=== PATIENT | male | born 1990 | race Caucasian/White ===

== ENCOUNTER 2018-06-07 21:57 | Inpatient (IN) | payer MEDICAID ==
[~2018-06-07] VITALS: Ht 170.2 cm; Wt 81.8 kg
[2018-06-08] MEDS ORDERED: OLAN10TA3 PO (00:44)
[2018-06-08 00:57] LABS: BASOPHILS % (AUTO) 0.4 % (0.0-2.0); EOSINOPHILS % (AUTO) 2.7 % (1.0-6.0); HEMATOCRIT 44.8 % (41-53); HEMOGLOBIN 15.3 g/dL (13.5-17.5); LYMPHOCYTES # (AUTO) 2.4 K/uL (1.0-4.8); LYMPHOCYTES % (AUTO) 22.6 % (22.0-44.0); MEAN CORPUSCULAR HEMOGLOBIN 29.8 pg (26.0-34.0); MEAN CORPUSCULAR HGB CONC 34.1 G/dL (31.0-37.0); MEAN CORPUSCULAR VOLUME 87 fL (80-100); MONOCYTES # (AUTO) 1.1 K/uL (0.1-1.0); NEUTROPHILS # (AUTO) 6.8 K/uL (1.8-7.7); NEUTROPHILS % (AUTO) 64.3 % (40.0-70.0); PLATELET COUNT (AUTO) 257 K/uL (150-450); RED BLOOD CELL COUNT(AUTO) 5.14 MIL/uL (4.50-5.90); RED CELL DISTRIBUTION WIDTH 13.8 % (11.5-14.5)
[2018-06-08 01:04] LABS: ANION GAP 7 mmol/L (8-16); CALCIUM, TOTAL 9.2 mg/dL (8.8-10.5); CARBON DIOXIDE 28 mmol/L (22-29); CHLORIDE 101 mmol/L (98-107); CREATININE 1.06 mg/dL (0.60-1.30); GLOMERULAR FILTR. RATE CALC > 60 mL/min (>60); GLUCOSE,RANDOM 106 mg/dL (70-110); POTASSIUM 3.5 mmol/L (3.5-5.1); SODIUM SERUM 136 mmol/L (136-145); UREA NITROGEN, BLOOD 22 mg/dL (7-18)
[2018-06-08 01:10] LABS: ALANINE AMINOTRANSFERASE 29 U/L (12-78); ALBUMIN 3.3 g/dL (3.4-5.0); ALKALINE PHOSPHATASE 85 U/L (46-116); ASPARTATE AMINOTRANSFERASE 22 U/L (15-37); BILIRUBIN,TOTAL 0.5 mg/dL (0.1-1.0); TOTAL PROTEIN, SERUM 7.3 g/dL (6.4-8.2)
[2018-06-08 01:13] LABS: ACETAMINOPHEN < 2 mcg/mL (10-30)
[2018-06-08 01:29] LABS: SALICYLATE < 2.8 mg/dL (2.8-20.0)
[2018-06-08 04:07] LABS: AMPHET/METH SCREEN,URINE POSITIVE (NEGATIVE); BARBITURATE SCREEN, URINE NEGATIVE (NEGATIVE); BENZODIAZEPINES SCREEN,URINE NEGATIVE (NEGATIVE); CANNABINOID SCREEN,URINE POSITIVE (NEGATIVE); COCAINE SCREEN,URINE NEGATIVE (NEGATIVE); METHADONE SCREEN, URINE NEGATIVE (NEGATIVE); OPIATE SCREEN,URINE POSITIVE (NEGATIVE); PHENCYCLIDINE SCREEN,URINE NEGATIVE (NEGATIVE)
[2018-06-08] MEDS ORDERED: HALOPERIDOL 5 MG TABLET PO PRN (05:00)
[2018-06-08] MEDS ORDERED: ZOLPIDEM TARTRATE 10 MG TABLET PO PRN (05:00)
[2018-06-08] MEDS ORDERED: LORazepam 1 MG TABLET PO PRN (05:00)
[2018-06-08 05:31] LABS: APPEARANCE,URINE CLEAR (CLEAR); BILIRUBIN,URINE NEGATIVE (NEGATIVE); GLUCOSE, URINE (UA) NEGATIVE (NEGATIVE); KETONES,URINE NEGATIVE (NEGATIVE); LEUKOCYTE ESTERASE ,URINE NEGATIVE (NEGATIVE); NITRATE,URINE NEGATIVE (NEGATIVE); OCCULT BLOOD,URINE NEGATIVE (NEGATIVE); PROTEIN,URINE NEGATIVE (NEGATIVE); UROBILINOGEN,URINE 0.2 mg/dL (<=1.0)
[2018-06-08 05:36] VITALS: BP 121/62
[2018-06-08 07:25] VITALS: BP 110/61
[2018-06-08 09:46] VITALS: BP 107/61
[2018-06-08] MEDS ORDERED: SODIUM CHLORIDE 0.9% 1,000 ML IV ONE (09:59)
[2018-06-08] MEDS ORDERED: BISACODYL 5 MG EC TABLET PO PRN (14:15)
[2018-06-08 17:09] VITALS: BP 104/61
[2018-06-08] MEDS: OLANZapine 10 MG TABLET PO SCH (21:44)
[2018-06-09 06:31] LABS: CHOL/HDL RATIO 1.9 (4.2-7.3)
[2018-06-09 10:43] VITALS: BP 118/75
[2018-06-09 11:19] LABS: GLUCOMETER DEV NAME(LOC) 3E.I; GLUCOSE,POINT OF CARE 91 MG/DL (70-110)
[2018-06-09] MEDS ORDERED: ACETAMINOPHEN 325 MG TABLET PO PRN (11:30)
[2018-06-09] MEDS: IBUPROFEN 600 MG TABLET PO PRN (11:48)
[2018-06-09 17:20] VITALS: BP 105/61
[2018-06-09] MEDS: OLANZapine 10 MG TABLET PO SCH (21:22)
[2018-06-10 07:06] VITALS: BP 116/77
[2018-06-10 08:03] VITALS: BP 118/74
[2018-06-10 16:54] VITALS: BP 124/67
[2018-06-10] MEDS: OLANZapine 10 MG TABLET PO SCH (21:03)
[2018-06-11 05:21] VITALS: BP 125/75
[2018-06-11 09:30] VITALS: BP 131/73
[2018-06-11] MEDS: IBUPROFEN 600 MG TABLET PO PRN (09:57)
[2018-06-11 16:42] VITALS: BP 131/58
[2018-06-11] MEDS: OLANZapine 10 MG TABLET PO SCH (20:45)
[2018-06-12 09:00] VITALS: BP 119/77
[2018-06-12] MEDS: IBUPROFEN 600 MG TABLET PO PRN (09:42)
[2018-06-12] MEDS ORDERED: OLANZapine 5 MG TABLET PO SCH (21:00)
== END 2018-06-12 16:30 | disposition home or self-care (01) | DRG 750 ==
LOC: EMS 21:59 → 3EI 06-08 04:30
DX: F20.0 Paranoid schizophrenia (principal); F12.10 Cannabis abuse, uncomplicated; F32.9 Major depressive disorder, single episode, unspecified; J45.909 Unspecified asthma, uncomplicated; K59.00 Constipation, unspecified; T40.602A Poisoning by unspecified narcotics, intentional self-harm, initial encounter; F15.90 Other stimulant use, unspecified, uncomplicated; T43.592A Poisoning by other antipsychotics and neuroleptics, intentional self-harm, initial encounter; Z87.891 Personal history of nicotine dependence; Z87.09 Personal history of other diseases of the respiratory system; Y92.89 Other specified places as the place of occurrence of the external cause; Z28.21 Immunization not carried out because of patient refusal; Z91.5 Personal history of self-harm; Z90.49 Acquired absence of other specified parts of digestive tract
CPT/HCPCS: 93005; G0480; G0481; J7030